=== PATIENT | female | born 1995 | race African-American/Black ===

== ENCOUNTER 2018-02-15 03:40 | Emergency (ER) | payer MEDICAID ==
[~2018-02-15] VITALS: Ht 172.7 cm; Wt 81.6 kg
[2018-02-15 03:50] VITALS: BP 103/71
--- NOTE | 2018-02-15 05:11 | Emergency Room Report ---
History of Present Illness General Chief Complaint: Alcohol Intoxication Source: Patient, EMS (Soindo Dai MD) Present Illness HPI 22-year-old female presents ED for evaluation. Brought in by EMS for EtOH. Found in front of hotel tonight. Patient told 911 that she drank alcohol. Denies drug use. Denies abdominal pain. Denies nausea or vomiting. No other aggravating relieving factors. Denies any other associated symptoms (Sonido Dai MD) Allergies: Coded Allergies: No Known Allergies (Unverified , 02/15/18) Patient History Past Medical History: none Past Surgical History: none Pertinent Family History: none Social History: Reports: alcohol use; Denies: smoking, drug use Last Menstrual Period: unable to obtain Now: No - unable to obtain Immunizations: UTD Reviewed Nursing Documentation: PMH: Agreed; PSxH: Agreed (Sonido Dai MD) Nursing Documentation-PMH Past Medical History: Deferred (Sonido Dai MD) Review of Systems All Other Systems: limited (Sonido Dai MD) Physical Exam Vital Signs Date Time Temp Pulse Resp B/P (MAP) Pulse Ox O2 Delivery O2 Flow Rate FiO2 02/15/18 03:45 98.1 75 18 103/71 99 Room Air Sp02 EP Interpretation: reviewed, normal General Appearance: no apparent distress, lethargic, other - intoxicated Head: normocephalic, atraumatic Eyes: bilateral eye normal inspection, bilateral eye PERRL ENT: hearing grossly normal, normal pharynx, no angioedema, normal voice Neck: full range of motion, supple/symm/no masses Respiratory: chest non-tender, lungs clear, normal breath sounds, speaking full sentences Cardiovascular #1: regular rate, rhythm, no edema Cardiovascular #2: 2+ carotid (R), 2+ carotid (L), 2+ radial (R), 2+ radial (L) , 2+ dorsalis pedis (R), 2+ dorsalis pedis (L) Gastrointestinal: normal bowel sounds, non tender, soft, non-distended, no guarding, no rebound Rectal: deferred Genitourinary: normal inspection, no CVA tenderness Musculoskeletal: back normal, gait/station normal, normal range of motion, non- tender Neurologic: other - intoxicated Psychiatric: other - intoxicated Reflexes: 3+ bicep (R), 3+ bicep (L), 3+ tricep (R), 3+ tricep (L), 3+ knee (R) , 3+ knee (L) Skin: normal color, no rash, warm/dry, well hydrated Lymphatic: no adenopathy (Sonido Dai MD) Medical Decision Making Diagnostic Impression: Primary Impression: Acute alcoholic intoxication ER Course Please note that at approximately 850 this morning Patient has awakened has clear speech and bleeding without any deficit Patient reports that she has no family or anyone else to call and would like to take the bus No further intervention was made with this patient (Hodan Suárez DO) Last Vital Signs Date Time Temp Pulse Resp B/P (MAP) Pulse Ox O2 Delivery O2 Flow Rate FiO2 02/15/18 03:50 75 16 02/15/18 03:50 98.0 103/71 99 Room Air (Sonido Dai MD) Scripts Unable to Obtain Active Prescriptions or Reported Meds Referrals: NOT CHOSEN IPA/,REFERRING (PCP) Sonido Dai MD Feb 15, 2018 05:11 Hodan Suárez DO Feb 15, 2018 08:51
[2018-02-15 08:49] VITALS: BP 122/77
[2018-02-15 09:04] VITALS: BP 124/76
== END 2018-02-15 08:50 | disposition home or self-care (01) ==
LOC: EDBD 03:40 → EMR 04:08
DX: F10.129 Alcohol abuse with intoxication, unspecified (principal)
CPT/HCPCS: 99283